=== PATIENT | female | born 1985 | race Caucasian/White ===

== ENCOUNTER → 2018-11-27 | Outpatient (REF) | payer OTHER ==
[2015-04-05 11:23] VITALS: BMI 30.5
[~2018-11-27] MED LIST: ACE3 PO; BUP75 PO; CALC400T65 PO; DESV50TA9 PO; GLY25 FT; IBU800 PO; IBUP800T37 PO; LOR5 PO; MAGN30TA5 PO; MET2 PO; POTA99TA13 PO; PREN-85 PO; SER50 PO
== END ==
LOC: ZZSENDIN 12:58
PROVIDERS: ATTEND Obstetrics & Gynecology
DX: Z36.89 Encounter for other specified antenatal screening (principal); Z3A.28 28 weeks gestation of pregnancy
CPT/HCPCS: 82950; 85027

== ENCOUNTER 2019-02-02 02:32 | Inpatient (IN) | payer OTHER ==
[~2019-02-02] VITALS: Ht 172.7 cm; Wt 93.0 kg
[2019-02-02] MEDS ORDERED: LR(*) 1000 ML BAG 1,000 ML IV PRN (02:33)
[2019-02-02] MEDS ORDERED: FAMOTIDINE(*) 20MG/50ML PREMIX 50 ML IVPB PRN (02:34)
[2019-02-02] MEDS ORDERED: OXYTOCIN 30 UNIT/D5LR 500 ML 500 ML IV PRN (02:34)
[2019-02-02] MEDS ORDERED: ACETAMINOPHEN 500 MG TAB PO PRN (02:35)
[2019-02-02] MEDS ORDERED: cefOXitin/DEX(*) 2GM/50ML PREM 50 ML IVPB PRN (02:35)
[2019-02-02] MEDS ORDERED: LIDOCAINE 1% LOCAL 300 MG/30ML INJ PRN (02:35)
[2019-02-02] MEDS ORDERED: CALCIUM CARBONATE 500 MG CHEW PO PRN (02:35)
[2019-02-02] MEDS ORDERED: fentaNYL CITR 100 MCG/2 ML AMP IVP PRN (02:35)
[2019-02-02] MEDS ORDERED: ONDANSETRON 4 MG/2 ML VIAL IVP PRN (02:35)
[2019-02-02] MEDS ORDERED: METOCLOPRAMIDE 10 MG/2 ML SDV IVP PRN (02:35)
[2019-02-02] MEDS ORDERED: FLUSH 10 ML SYR IVP PRN (02:35)
[2019-02-02] MEDS ORDERED: LIDOCAINE/SOD BICARB 8.4% SYR SC PRN (02:35)
[2019-02-02] MEDS ORDERED: LR(*) 1000 ML BAG 1,000 ML ONE (03:05)
[2019-02-02 03:30] VITALS: BP 136/83; Ht 172.7 cm; Wt 93.0 kg
[2019-02-02 03:32] LABS: PLATELET COUNT, AUTOMATED 166 K/uL (150-450)
[2019-02-02] MEDS ORDERED: ePHEDrine 25 MG/5 ML DISP.SYR IVP ONE (03:35)
[2019-02-02] MEDS ORDERED: LIDOCAINE/PF 2% 200MG/10ML AMP 200 MG/10 ML AMPUL EPI PRN (03:40)
[2019-02-02] MEDS ORDERED: fentaNYL CITR 100 MCG/2 ML AMP IT PRN (03:40)
[2019-02-02] MEDS ORDERED: BUPIVACAINE 0.25% MPF INJ EPI PRN (03:40)
[2019-02-02] MEDS ORDERED: FENTANYL/ROPIVACAINE 100 ML BAG EPI PRN (03:40)
[2019-02-02] MEDS ORDERED: LIDO/EPI 2% MPF 1:200,000 20ML EPI PRN (03:40)
--- NOTE | 2019-02-02 04:37 | Anesthesia OB Pre-Anes Eval ---
History of Present Illness Anesthesia Start Date: Feb 02, 2019 Anesthesia Start Time: 03:45 OB Anesthesia Diagnosis: spontaneous labor EDC: Apr 13, 2015 : 3 Para: 1 Result Diagram: 02/02/19 0316 Weight (Pounds): 195 Past Medical History Medical History: no pertinent history Surgical History: other (D&C) Previous Anesthesia: general, epidural Attended Childbirth Classes?: No Hx Anesthesia Reactions: No Hx Family Anesthesia Reaction: No Home Meds Active Scripts Ibuprofen (IBUPROFEN) 800 Mg Tablet, 1 TAB PO Q8H PRN for pain, #30 TAB 0 R efills Prov:AWAIS ALDANA MD 04/06/15 Acetaminophen/Codeine (TYLENOL #3 (OR EQUIV)) 1 Each Tab, 1-2 EACH PO Q4H PRN for PAIN, #30 TAB 0 Refills Prov:AWAIS ALDANA MD 04/06/15 Reported Medications Calcium Carbonate (TUMS ULTRA) 400 Mg Tab.chew, 400 MG PO, TAB.CHEW 04/05/15 Vits W-Ca,Fe,Fa(<1MG) () 1 Each Tablet, 1 EACH PO DAILY, 0 Refills 06/05/10 Allergies: Coded Allergies: No Known Drug Allergies (Verified , 03/22/15) Anesthesia OB ROS Neurological: No migraines/headaches, No seizures, No neuropathy, No other ENT: Denies Tooth caps, Denies Loose teeth, Denies Chipped teeth, Denies Dentures, Denies Bridges, Denies Retainers, Denies Veneers, Denies Implants, Denies Tongue ring, Denies Other Pulmonary: No asthma, No smoker (pks/day/yrs), No other Airway Class: ll Cardiovascular ROS: No edema, No arrhythmia, No other GI ROS: clear liquids Last Solids Date: Feb 01, 2019 Last Solids Time: 18:00 ROS: No Herpes, No STD(s), No Liver Disease, No Renal Disease, No Other Endocrine ROS: No diabetes, No gestational diabetes, No thyroid disorder, No other Musculoskeletal ROS: No low back pain, No low back injury, No scoliosis, No other ASA Classification: 2 Assessment and Plan Anesthesia Plan: CSE Anesthesia Stop Day: Feb 02, 2019 Anesthesia Stop Time: 06:26 Epidural Catheter Removal: Removed Catheter Intact, Yes, Removed by: (Radha Santiago CRNA) Removal Date: Feb 02, 2019 Removal Time: 09:00 RADHA SANTIAGO CRNA Feb 02, 2019 04:37
--- NOTE | 2019-02-02 04:42 | Procedure Note ---
Anesthetic Placement Note Anesthesia Plan: CSE Permit for Anesthesia Signed: Yes Anesthesia Technique: Patient Sitting Anesthesia Prep: Betadine Interspace: L 3-4 Local Anesthetic: 1% Lidocaine, 25 Gauge Needle Amount Local - cc's: 2 Anesthesia Needle: 17g Touhy/Schliff Anesthesia Attempts: 1 Loss of Resistance: Normal Saline Depth of RIC (cm): 5 Epidural Needle Placement: No CSF, No Blood, No Parasthesia Intrathecal Needle: 27 Gauge Pencan Cerebral Spinal Fluid: Yes, Clear Catheter Insertion (cm): 11 Catheter Type: Wade - Spring Wound Epidural Dressing: Tegaderm, Tape Anesthesia Tray: Lot Number ([id number]), Expiration Date (07/10/2020) Anesthesia Medications: Intrathecal Dose: mcg Fentanyl (50), Time (0357) Epidural Test Dose: 1.5 Lido/Epi (1:200,000), Dose - mL (5), Time (0359), Negative Epidural Loading Dose: 0.2% Ropivicaine, With Fentanyl 2mcg/ml, Dose - ml (2), Time (0410) Epidural Infusion: 0.2% Ropivicaine, With Fentanyl 2mcg/ml, Start Time: (0410) Epidural Pump Setting: Bolus Dose - mL (5), Lockout - Minutes (20), Maintenance Rate - mL/hr (8), Maximum per Hour - mL (10) Complications: None RADHA TORRES CRNA Feb 02, 2019 04:42
[2019-02-02] MEDS ORDERED: ePHEDrine 25 MG/5 ML DISP.SYR IVP PRN (04:45)
[2019-02-02] MEDS ORDERED: MAGNESIUM HYDROXIDE* 30ML UDCP PO PRN (05:45)
[2019-02-02] MEDS ORDERED: BENZOCAINE 20% 60 ML BTL TP PRN (05:45)
[2019-02-02] MEDS ORDERED: LANOLIN OINT 7 GM TUBE TP PRN (05:45)
[2019-02-02] MEDS ORDERED: HYDROCORTISONE 2.5% CR 30GM TB PR PRN (05:45)
[2019-02-02] MEDS ORDERED: MEASLES,MUMP,RUBELLA VAC 0.5ML SC ONE (05:45)
[2019-02-02] MEDS ORDERED: ACETAMINOPHEN 325 MG TAB PO PRN (05:45)
[2019-02-02] MEDS ORDERED: INFLUENZA VIRUS VAC 0.5ML SYR IM ONLY ONE (05:45)
[2019-02-02] MEDS ORDERED: GLYCERIN/WITCH HAZEL LEAF 1 PK TOP PRN (05:45)
[2019-02-02] MEDS ORDERED: DIPHTH/TETANUS/ACEL. PERTUSSIS IM ONE (05:45)
--- NOTE | 2019-02-02 05:53 | History & Physical ---
History of Present Illness Age of Patient: 32 : 4 Para or TPAL: 2 EDC per LMP: Feb 19, 2019 Estimated Gestational Age: 37.5 Chief Complaint Labor History of Present Illness Presents in obvious labor and SROM. was complicated slightly by a mood disorder she carried coming into the . She was on Lamictal and w eaned off. Ultimately she restarted 5 mg Lexapro near end of . Past Medical, Surgical, Family and Obstetric Histories reviewed. Please see ACOG chart. History Patient's Blood Type: O Positive Rubella Status: Immune Group B Strep Screen: Negative Obstetrical History: 2 prior vaginal deliveries, uncomplicated. Allergies: Coded Allergies: No Known Drug Allergies (Verified , 03/22/15) Social History: No T/E/D. . Med Rec Home Meds Active Scripts Ibuprofen (IBUPROFEN) 800 Mg Tablet, 1 TAB PO Q8H PRN for pain, #30 TAB 0 Refills Prov:AWAIS ALDANA MD 04/06/15 Acetaminophen/Codeine (TYLENOL #3 (OR EQUIV)) 1 Each Tab, 1-2 EACH PO Q4H PRN for PAIN, #30 TAB 0 Refills Prov:AWAIS ALDANA MD 04/06/15 Reported Medications Calcium Carbonate (TUMS ULTRA) 400 Mg Tab.chew, 400 MG PO, TAB.CHEW 04/05/15 Vits W-Ca,Fe,Fa(<1MG) () 1 Each Tablet, 1 EACH PO DAILY, 0 Refills 06/05/10 Review of Systems All Systems Reviewed/Normal: Yes, Except as Noted Exam General Exam General Apperance: Alert/Awake/No Acute Distress Neuro: No Gross deficits Eyes: Normal Extraocular Movement & Vison Cardiovascular: Regular Rate and Rhythm Respiratory: No Respiratory Distress Abdomen: Soft, Non-Tender, Non-Distended Musculoskeletal: No Weakness/Pain Extremities: No Cyanosis,Clubbing or Edema Integumentary: Skin Intact without Lesions or Rash Psychological: Alert & Oriented X3, Appropriate Mood & Affect Cervical Dialation: 5 Cervical Effacement (%): 100 Fetus Heart Tone Variabilty: Moderate FHT Accelerations: 15X15 FHT Category: I Medical Decision Making Data Points Result Diagram: 02/02/19 0316 VTE Prophylasis: Adult Deep Vein Thrombosis/Pulmonary: No Pharmacological Contraindicati: Pt at Low Risk for VTE Mechanical Contraindications: Pt at Low Risk for VTE Assessment and Plan [employer]URNED [employer] REPA[employer]ER Plan: Routine Labor Care Problems: (1) 37 weeks gestation of (2) History of depression Status: Acute PATRICIA SCHWARTZ MD Feb 02, 2019 05:53
--- NOTE | 2019-02-02 05:58 | OB Delivery Note ---
Delivery Note Vaginal Delivery Type: Spont. Vaginal Delivery Delivery Date: Feb 02, 2019 Delivery Time: 05:26 Estimated Gestational Age(wks): 37.3 Delivery Anesthesia: Epidural Sex: Female [place] Apgars: 1 Minute (7), 5 Minute (8) Repair Needed: Laceration, 1st Degree Estimated Blood Loss: 100 Delivery Complications: Laceration Notes: Presents in active labor and ruptured. Normal progress to complete and ready to push. Brought into lithotomy position and pushing effectively. Brought to in COLE position. Controlled delivery over first degree laceration. Nuchal cord x 1. Shoulders delivered spontaneous. Placenta delivered spontaneous and intact. Repair with 2-0 Chromic without complication. Supervisor P[employer] in Attendence: No Copies to: PATRICIA SCHWARTZ MD ; PATRICIA SCHWARTZ MD Feb 02, 2019 05:58
[2019-02-02 07:00] VITALS: BP 114/67
[2019-02-02] MEDS: ESCITALOPRAM OXALATE 10 MG TAB PO SCH (07:34)
[2019-02-02] MEDS: DOCUSATE CALCIUM 240 MG CAP PO SCH ×2 (08:45→21:25)
[2019-02-02] MEDS: IBUPROFEN 800 MG TAB PO SCH ×2 (08:45→16:46)
[2019-02-02 11:15] VITALS: BP 125/88
[2019-02-02] MEDS: APAP/HYDROCODONE 325/5 TAB PO PRN ×2 (13:04→17:47)
[2019-02-02 15:40] VITALS: BP 140/78
[2019-02-02 20:10] VITALS: BP 140/82
[2019-02-02 23:55] VITALS: BP 142/92
[2019-02-03] MEDS: IBUPROFEN 800 MG TAB PO SCH ×2 (01:19→09:08)
[2019-02-03 07:35] VITALS: BP 136/79
[2019-02-03] MEDS: APAP/HYDROCODONE 325/5 TAB PO PRN ×2 (07:43→12:08)
[2019-02-03] MEDS: DOCUSATE CALCIUM 240 MG CAP PO SCH (09:08)
[2019-02-03] MEDS: ESCITALOPRAM OXALATE 10 MG TAB PO SCH (09:12)
[2019-02-03] MEDS ORDERED: IBUP800T37 PO (12:27)
[2019-02-03] MEDS ORDERED: LOR5/325 PO (12:27)
[2019-02-03] MEDS ORDERED: ESC10 FT (12:27)
[2019-02-03] MEDS ORDERED: DOCU-416 PO (12:27)
--- NOTE | 2019-02-03 12:31 | OB/GYN Discharge Summary ---
Discharge Summary Reason for Hosp/Final Diag: (1) History of depression Status: Acute Hospital Course & Plan: Resume Lexapro at 10mg daily (2) Spontaneous onset of labor Status: Resolved (3) Status post vaginal delivery Status: Acute Hospital Course & Plan: S/p . Discharge home today. Follow-up 6 weeks , sooner as needed. Lates Vital Signs Vital Signs Date Time Temp Pulse Resp B/P (MAP) Pulse Ox O2 Delivery O2 Flow Rate FiO2 02/03/19 07:35 97.9 66 16 136/79 (98) 02/03/19 04:05 Room Air 02/02/19 15:40 95 Weight (Pounds): 205 Result Diagram: 02/03/19626 Condition: Improved Discharge: Home, Self Nursing Home Meds Active Scripts Hydrocodone Bit/Acetaminophen (HYDROCODON-ACETAMINOPHEN 5-325) 1 Each Tablet, 1- 2 EACH PO Q4-6H PRN for PAIN for 7 Days, #20 TAB Prov:ZAYDA BANGURA 02/03/19 Ibuprofen (IBUPROFEN) 800 Mg Tablet, 1 TAB PO Q8H PRN for pain, #30 TAB 0 Refills Prov:AWAIS ALDANA MD 04/06/15 Acetaminophen/Codeine (TYLENOL #3 (OR EQUIV)) 1 Each Tab, 1-2 EACH PO Q4H PRN for PAIN, #30 TAB 0 Refills Prov:AWAIS ALDANA MD 04/06/15 Reported Medications Calcium Carbonate (TUMS ULTRA) 400 Mg Tab.chew, 400 MG PO, TAB.CHEW 04/05/15 Vits W-Ca,Fe,Fa(<1MG) () 1 Each Tablet, 1 EACH PO DAILY, 0 R efills 06/05/10 [facility] [phone], Dr. Donovan [phone] Follow up in: 6 wks PP or PO Discharge Diet: Resume Prior Admit Diet Discharge Activity: As Tolerates, Pelvic Rest ZAYDA BANGURA Feb 03, 2019 12:31
== END 2019-02-03 15:05 | disposition home or self-care (01) | DRG 807 ==
LOC: OBSVTOIN 02:32 → OB 02:32
PROVIDERS: ADMIT Obstetrics & Gynecology; ATTEND Obstetrics & Gynecology
PROC: 10E0XZZ Delivery of Products of Conception, External Approach (ICD-10-PCS; principal; 2019-02-02)
PROC: 0HQ9XZZ Repair Perineum Skin, External Approach (ICD-10-PCS; 2019-02-02)
DX: O69.81X0 Labor and delivery complicated by cord around neck, without compression, not applicable or unspecified (principal); Z37.0 Single live birth; O99.344 Other mental disorders complicating childbirth; O70.0 First degree perineal laceration during delivery; F39 Unspecified mood [affective] disorder; Z3A.37 37 weeks gestation of pregnancy
CPT/HCPCS: 36415; 84112; 85025; 85027; 86703; 86850; 86900; 86901; J7120